=== PATIENT | female | born 1960 | race Caucasian/White ===

== ENCOUNTER → 2019-07-14 15:15 | Outpatient (CLI) | payer OTHER, SELFPAY ==
--- NOTE | ~2019-07-14 | MM_ITS ---
EXAMINATION: MM screening missy BI w hermila HISTORY: Screening mammogram TECHNIQUE: Craniocaudal and mediolateral oblique 3-D tomosynthesis images were obtained and synthetic 2-D images were generated. CAD analysis was submitted and interpreted. COMPARISON: 04/23/2018 bilateral digital screening mammogram 05/07/2017 diagnostic right digital mammogram and limited right breast ultrasound 04/19/2017 bilateral digital screening mammogram BREAST PARENCHYMAL COMPOSITION: The breasts are heterogeneously dense, which may obscure small masses . FINDINGS: There is no evidence of suspicious mass, calcification, or architectural distortion to sugg est malignancy in either breast. There has been no suspicious interval change. IMPRESSION: 1. No mammographic evidence of malignancy. 2. Recommend routine screening mammography in one year. BI-RADS Category 1: Negative Reviewed, dictated and finalized at location A. 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
== END ==
DX: Z12.31 Encounter for screening mammogram for malignant neoplasm of breast (principal)
CPT/HCPCS: 77063; 77067

== ENCOUNTER → 2020-08-31 15:45 | Outpatient (CLI) | payer OTHER, SELFPAY ==
--- NOTE | ~2020-08-31 | DEXA_ITS ---
Bone Density Report Name: Cinda Coreas Age: 59 Sex: Female Ethnicity: White Date of : 1960 Indication: postmenopausal; screening for osteoporosis; hysterectomy; Referring Provider: Mita Witt Study: Bone densitometry was performed. Exam Date: August 31, 2020 Accession number: [id number] Bone Density: Region BMD T-score Z-score Classification AP Spine (L1, L3, L4) 1.278 2.0 3.4 Normal Femoral Neck (Left) 0.881 0.3 1.5 Normal Total Hip (Left) 1.023 0.7 1.5 Normal Femoral Neck (Right) 0.881 0.3 1.5 Normal Total Hip (Right) 0.988 0.4 1.2 Normal Total Hip Mean 1.006 0.6 1.4 Normal World Health Organization criteria for BMD impression classify patients as: Normal (T-score at or above -1.0), Osteopenia (T-score between -1.0 and -2.5), or Osteoporosis (T-score at or below -2.5). 10-year Fracture Risk: FRAX not reported because: All T-scores for Spine Total, Hip Total, Femoral Neck at or above -1.0 Clinical Information Provided by Patient: Has used the following medications: Vitamin D, Calcium Has the following medical conditions: Hysterectomy Patient maximum height was 64 Menopause Age: 41 Drinks caffeinated beverages Onset of menses at age 14 Number of children 1 Impression: The patient has normal bone mass. Discussion: BONE DENSITY IS ABOVE THE MINIMUM DESIRABLE LEVEL AT ALL SKELETAL SITES TESTED. This patient?s bone mineral density is above the minimum desirable level (T-score -1.0 or better) at all sites measured. The patient should follow a healthful lifestyle (good nutrition with adequate calcium and vitamin D, and appropriate weight-bearing exercise). Follow-Up: Consider repeating this study in 5 years or sooner if there is some new clinical indication. Reported by: [facility] on 08/31/2020 4:05:00 PM. Reviewed, dictated and finalized at location [facility]
== END ==
PROVIDERS: PCP Registered Nurse; Visit Provider Student in an Organized Health Care Education/Training Program
DX: Z78.0 Asymptomatic menopausal state (principal)
CPT/HCPCS: 77080

== ENCOUNTER → 2020-09-29 17:25 | Outpatient (CLI) | payer OTHER, SELFPAY ==
--- NOTE | ~2020-09-29 | MM_ITS ---
EXAMINATION: MM screening missy BI w hermila HISTORY: Screening mammogram TECHNIQUE: Craniocaudal and mediolateral oblique 3-D tomosynthesis images were obtained and synthetic 2-D images were generated. CAD analysis was submitted and interpreted. COMPARISON: 07/14/2019, 04/23/2018 bilateral digital screening mammogram examinations BREAST PARENCHYMAL COMPOSITION: The breasts are heterogeneously dense, which may obscure small masses . FINDINGS: New 4 mm circumscribed opacity is noted in the posterior central breast on craniocaudal vie w. Diagnostic right mammogram and right breast ultrasound examination are recommended. Otherwise there is no evidence of suspicious mass, calcification, or architectural distortion to sugg est malignancy in either breast. There has been no other suspicious interval change. IMPRESSION: 1. New 4 mm circumscribed mass in posterior central right breast on craniocaudal view 2. Diagnostic right mammogram and right breast ultrasound examination are recommended. BI-RADS Category 0: Incomplete: Needs additional imaging evaluation. Reviewed, dictated and finalized at location A. IMPRESSION: 1. New 4 mm circumscribed mass in posterior central right breast on craniocauda l view 2. Diagnostic right mammogram and right breast ultrasound examination are recom mended. BI-RADS Category 0: Incomplete: Needs additional imaging evaluation.
== END ==
PROVIDERS: PCP Registered Nurse; Visit Provider Student in an Organized Health Care Education/Training Program
DX: Z12.31 Encounter for screening mammogram for malignant neoplasm of breast (principal); R92.8 Other abnormal and inconclusive findings on diagnostic imaging of breast
CPT/HCPCS: 77063; 77067

== ENCOUNTER → 2020-10-25 07:33 | Outpatient (CLI) | payer OTHER, SELFPAY ==
--- NOTE | ~2020-10-25 | MMUS_ITS ---
EXAMINATION: MM diagnostic mammo unilat RT, US breast RT complete HISTORY: New 4 mm circumscribed mass in posterior central right breast reported on screening cranioca udal view of 09/29/2020 TECHNIQUE: Additional 3-D tomosynthesis images of the right breast were performed and synthetic 2-D i mages were generated. CAD analysis was submitted and interpreted. High resolution complete right [facility] ultrasound was performed. COMPARISON: 09/26 2020 bilateral digital screening mammogram FINDINGS: MAMMOGRAPHIC FINDINGS: No suspicious mammographic mass or architectural distortion is noted. There is heterogeneously dense stroma, which limits the examination] and might obscure a mass. Complete right breast ultrasound exam ination was performed. ULTRASOUND: 6:00 5 cm from nipple: Parallel circumscribed 1.7 x 4.3 x 3.4 mm sonolucent lesion, likely a small cy st 6:00 4.5 cm from nipple: Similar parallel circumscribed 1.9 x 4.7 x 4.2 mm sonolucency, likely a smal l cyst No suspicious mass or shadowing of the right breast is detected. IMPRESSION: 1. No mammographic evidence of malignancy 2. Routine mammographic screening is recommended. BI-RADS Category 2: Benign finding(s). Reviewed, dictated and finalized at location A. IMPRESSION: 1. No mammographic evidence of malignancy 2. Routine mammographic screening is recommended. BI-RADS Category 2: Benign finding(s).
== END ==
PROVIDERS: Visit Provider Student in an Organized Health Care Education/Training Program
DX: R92.8 Other abnormal and inconclusive findings on diagnostic imaging of breast (principal)
CPT/HCPCS: 76641; 77065

== ENCOUNTER 2021-07-21 00:25 | Day surgery (SDC) | payer OTHER, SELFPAY ==
[2021-07-07 12:11] VITALS: BMI 22.6
[2021-07-21 06:56] VITALS: BP 114/81; PULSE 65; RESP 16; TEMP 36.1; O2SAT 100; BMI 21.9
[2021-07-21] MEDS: LACTATED RINGERS 1,000 ML 150 ML IV CONT (07:08)
--- NOTE | 2021-07-21 07:23 | P.PNAN_ITS ---
Anes - Initial Pre Proc Eval Procedure: Operation Date: 07/21/21 08:00 Proposed Procedures p Screening Colonoscopy - Wilbur Pfeiffer MD Date/Time: 07/21/21 07:23 Surgeon: Wilbur Pfeiffer MD Pre Op Diagnosis: neoplasm screening Patient Data Age: 60 Gender: F Height: 1.63 m Weight: 58 kg Last Vital Signs Temp 36.1 C L 07/21/21 06:56 Pulse 65 07/21/21 06:56 Resp 16 07/21/21 06:56 BP 114/81 07/21/21 06:56 Pulse Ox 100 07/21/21 06:56 Allergies Allergy/AdvReac Type Severity Reaction Status Date / Time ampicillin Allergy Unknown unknown Verified 07/21/21 06:55 Home Medications Medication Instructions Recorded Confirmed Type calcium carbonate 500 mg calcium 500 mg PO DAILY 02/19/20 07/07/21 History (1,250 mg) capsule multivitamin 1 tablet PO DAILY 02/19/20 07/07/21 History lisinopril 10 mg tablet 10 mg PO DAILY 02/24/21 07/07/21 History valacyclovir 500 mg tablet 500 mg PO DAILY #90 tablet 02/24/21 07/07/21 Rx Patient hx anesthesia problems: none Family hx anesthesia problems: none Results Review: All pre-operative results and documents have been reviewed as part of the pre-operative evaluation. [facility] Past Medical History Medical History Breast cyst Depression Mild Genital herpes H/O nephrolithotomy with removal of calculi Hypertension Kidney stones Medullary sponge kidney Surgical History Surgical History H/O: hysterectomy Ovaries remain History of section History of colonoscopy with polypectomy Family History Family History Sibling Patient's sister is in good health Family history of seizure disorder Mother Family history of seizure disorder Father Hypertension Hyperlipidemia Social History Social History Smoking status: Never smoker Alcohol intake: current Drinks per week: 2 Substance use: current Substance use type: marijuana Living arrangements: with family Spiritual care concerns: No Anes - Eval Final PreProcedure Day of Procedure 07/21/21 07:23 Patient weight: normal Heart: regular rate and rhythm Lungs: clear to auscultation Airway: Mallampati scale class II Neurological: alert and oriented Last oral intake: >/= 8 hours ASA classification: II Emergent: no Anesthetic plan: proceed Anesthesia type and monitoring: general GIVS and standard monitoring Results Review: All pre-operative results and documents have been reviewed as part of the pre-operative evaluation. Informed Consent: The patient's anesthetic plan and its attendant risks and benefits were discussed with the patient/family/POA. Questions were solicited and answers provided to the satisfaction of the patient/family/POA.
--- NOTE | 2021-07-21 07:23 | WPDGICN ---
Assessment and Plan Assessment and plan (1) Encounter for screening colonoscopy: Code(s): Z12.11 - Encounter for screening for malignant neoplasm of colon Status: Acute Assessment and Plan: Patient presents for screening colonoscopy. Appears to be at average risk for colon polyps. There was a question of a colon polyp many years ago. This will be reassessed at time of endoscopy. Further recommendations will be given after endoscopy GI Consult Note Consult date/time: 07/21/21 07:23 HPI: Cinda Coreas is a 60 year old female Presents for screening colonoscopy. Patient reports that her current weight appetite and bowel movements are normal. Patient denies abdominal pain. She has had no bleeding. Family history is noncontributory. She reports having previous colonoscopy 9 or 10 years ago and there may have been a small pool in polyp that time plan is for surveillance colonoscopy at this time. Review of Systems Review of Systems: All systems reviewed & are unremarkable except as noted in HPI and below PMFSH Past Medical History Medical History Breast cyst Depression Mild Genital herpes H/O nephrolithotomy with removal of calculi Hypertension Kidney stones Medullary sponge kidney Surgical History Surgical History H/O: hysterectomy Ovaries remain History of section History of colonoscopy with polypectomy Family History Family History Sibling Patient's sister is in good health Family history of seizure disorder Mother Family history of seizure disorder Father Hypertension Hyperlipidemia Social History Social History Smoking status: Never smoker Alcohol intake: current Drinks per week: 2 Substance use: current Substance use type: marijuana Living arrangements: with family Spiritual care concerns: No Meds Home Medications and Allergies Home Medications Medication Instructions Recorded Confirmed Type calcium carbonate 500 mg calcium 500 mg PO DAILY 02/19/20 07/07/21 History (1,250 mg) capsule multivitamin 1 tablet PO DAILY 02/19/20 07/07/21 History lisinopril 10 mg tablet 10 mg PO DAILY 02/24/21 07/07/21 History valacyclovir 500 mg tablet 500 mg PO DAILY #90 tablet 02/24/21 07/07/21 Rx Allergies Allergy/AdvReac Type Severity Reaction Status Date / Time ampicillin Allergy Unknown unknown Verified 07/21/21 06:55 Vital Signs Vital Signs - 24 hr 07/21/21 06:56 Temperature 97 F L Pulse Rate 65 Respiratory Rate 16 Blood Pressure 114/81 Pulse Oximetry 100 Exam Narrative: Physical exam reveals patient be alert. Vital signs stable. HEENT exam is unremarkable. Patient is anicteric. Lungs are clear to auscultation and percussion. Heart is without murmur or extra sounds. Abdominal exam bowel sounds are present soft nontender with no organomegaly. Digital external rectal exam is normal.
[2021-07-21 08:17] VITALS: BP 97/42; PULSE 61; RESP 25; O2SAT 99
[2021-07-21 08:27] VITALS: BP 95/45; PULSE 65; RESP 17; O2SAT 100
[2021-07-21 08:37] VITALS: BP 101/50; PULSE 66; RESP 21; O2SAT 100
== END 2021-07-21 08:54 | disposition home or self-care (01) ==
PROVIDERS: PCP Registered Nurse; Visit Provider Internal Medicine Gastroenterology
PROC: 0DJD8ZZ Inspection of Lower Intestinal Tract, Via Natural or Artificial Opening Endoscopic (ICD-10-PCS; CPT 45378; principal; 2021-07-21 08:00)
DX: Z12.11 Encounter for screening for malignant neoplasm of colon (principal); K63.5 Polyp of colon; K64.8 Other hemorrhoids; I10 Essential (primary) hypertension; F32.9 Major depressive disorder, single episode, unspecified; B00.9 Herpesviral infection, unspecified; Q61.5 Medullary cystic kidney; F12.90 Cannabis use, unspecified, uncomplicated
CPT/HCPCS: 45385; 88305; J2704; J7120

== ENCOUNTER → 2021-12-30 07:17 | Outpatient (CLI) | payer OTHER, SELFPAY ==
--- NOTE | ~2021-12-30 | MM_ITS ---
EXAMINATION: MM screening missy BI w hermila HISTORY: Screening mammogram TECHNIQUE: Craniocaudal and mediolateral oblique 3-D tomosynthesis images were obtained and synthetic 2-D images were generated. CAD analysis was submitted and interpreted. COMPARISON: 10/21/2020 diagnostic right mammogram and complete right breast ultrasound /, , 04/23/2018 bilateral screening mammogram examinations BREAST PARENCHYMAL COMPOSITION: The breasts are heterogeneously dense, which may obscure small masses . FINDINGS: There is no evidence of suspicious mass, calcification, or architectural distortion to sugg est malignancy in either breast. There has been no suspicious interval change. IMPRESSION: 1. No mammographic evidence of malignancy. 2. Recommend routine screening mammography in one year. BI-RADS Category 1: Negative Reviewed, dictated and finalized at location B.
== END ==
PROVIDERS: PCP Registered Nurse; Visit Provider Student in an Organized Health Care Education/Training Program
DX: Z12.31 Encounter for screening mammogram for malignant neoplasm of breast (principal)
CPT/HCPCS: 77063; 77067

== ENCOUNTER → 2023-03-26 14:54 | Outpatient (CLI) | payer OTHER, SELFPAY ==
--- NOTE | ~2023-03-26 | MM_ITS ---
EXAMINATION: MM screening missy BI w hermila HISTORY: Screening mammogram TECHNIQUE: Craniocaudal and mediolateral oblique 3-D tomosynthesis images were obtained and synthetic 2-D images were generated. CAD analysis was submitted and interpreted. COMPARISON: 12/30/2021 bilateral screening mammogram 10/21/2020 diagnostic right mammogram and complete right breast ultrasound 09/29/2020, bilateral screening mammogram examinations BREAST PARENCHYMAL COMPOSITION: The breasts are heterogeneously dense, which may obscure small masses . FINDINGS: There is no evidence of suspicious mass, calcification, or architectural distortion to sugg est malignancy in either breast. There has been no suspicious interval change. IMPRESSION: 1. No mammographic evidence of malignancy. 2. Recommend routine screening mammography in one year. BI-RADS Category 1: Negative Reviewed, dictated and finalized at location A.
== END ==
PROVIDERS: PCP Registered Nurse; Visit Provider Registered Nurse
DX: Z12.31 Encounter for screening mammogram for malignant neoplasm of breast (principal)
CPT/HCPCS: 77063; 77067

== ENCOUNTER 2024-09-22 12:38 | Outpatient (CLI) | payer BC, SELFPAY ==
--- NOTE | ~2024-09-22 | MM_ITS ---
EXAMINATION: MM screening [facility] BI w hermila HISTORY: Screening TECHNIQUE: Craniocaudal and mediolateral oblique 3-D tomosynthesis images were obtained and synthetic 2-D images were generated. CAD analysis was submitted and interpreted. COMPARISON: 03/26/2023 and dating back to 04/23/2018 BREAST PARENCHYMAL COMPOSITION: The breasts are heterogeneously dense, which may obscure small masses . FINDINGS: Bulky calcification within the upper inner quadrant of the left breast, stable and benign i n appearance. Stable parenchymal pattern without suspicious microcalcifications, architectural distortion, discrete masses or significant asymmetry. IMPRESSION: 1. No mammographic evidence of malignancy. 2. Recommend routine screening mammography in one year. BI-RADS Category 2: Benign finding(s). Reviewed, dictated and finalized at location A.
== END 2024-09-22 12:39 | disposition home or self-care (01) ==
PROVIDERS: PCP Registered Nurse; Visit Provider Nurse Practitioner Obstetrics & Gynecology
DX: Z12.31 Encounter for screening mammogram for malignant neoplasm of breast (principal)
CPT/HCPCS: 77063; 77067